=== PATIENT | male | born 2000 | race Two or more races ===

== ENCOUNTER 2025-01-16 12:54 | Emergency (ER) | payer MEDICAID, SELFPAY ==
[2025-01-16 12:56] VITALS: BMI 22.8
[2025-01-16 13:12] VITALS: BP 144/75; PULSE 64; RESP 16; TEMP 36.7; O2SAT 97
--- NOTE | 2025-01-16 13:20 | XR_ITS ---
Examination: Knee, left , 3 views Technique: Knee AP, lateral, oblique 3 views Date and time of exam: January 16, 2025 1401 hours INDICATIONS: Soccer injury to the knee 2 months ago with worsening pain today FINDINGS: No acute fracture No dislocation Small knee effusion IMPRESSION: No acute fracture
[2025-01-16] MEDS: IBUPROFEN TAB 600 MG TABLET PO (14:13)
--- NOTE | 2025-01-16 14:49 | EDNOTE_ITS ---
Lower Extremity Injury RME/HPI General Chief Complaint: Extremity Injury, Lower Stated Complaint: L KNEE PAIN X2 MONTHS Time Seen by Provider: 01/16/25 13:09 Arrival date/time: 01/16/25 12:54 24-year-old male presents to the Emergency Department today for complaints of left knee pain patient reports he injured his knee 2 months ago Limitations: no limitations Related Data Previous Rx's ?Medication ?Instructions ?Recorded ibuprofen 800 mg tablet 800 mg PO TID PRN pain #30 t abs 01/16/25 Allergies Allergy/AdvReac Type Severity Reaction Status Date / Time No Known Allergies Allergy Verified 01/16/25 12:58 Review of Systems Review of Systems Systems Reviewed: All systems reviewed, normal except as documented Constitutional Constitutional: Reports system reviewed and no additional complaints, except as documented, Denies fever(s) and Denies headache(s) Eyes Eyes: Reports system reviewed and no additional complaints, except as documented and Denies blurry vision ENT Ears, Nose, Mouth, and Throat: Reports system reviewed and no additional complaints, except as documented, Denies headache(s), Denies nasal congestion and Denies nasal discharge Cardiovascular Cardiovascular: Reports system reviewed and no additional complaints, except as documented, Denies chest pain and Denies dyspnea Respiratory Respiratory: Reports system reviewed and no additional complaints, except as documented, Denies chest congestion, Denies cough and Denies dyspnea Gastrointestinal Gastrointestinal: Reports system reviewed and no additional complaints, except as documented and Denies abdominal pain Musculoskeletal Musculoskeletal: Reports system reviewed and no additional complaints, except as documented, Reports abnormal gait, Reports arthralgias, Denies deformity and Reports joint swelling Integumentary/Breasts Skin/Breast: Reports system reviewed and no additional complaints, except as documented and Denies rash Neurologic Neurologic: Reports system reviewed and no additional complaints, except as documented, Reports as per HPI, Reports abnormal gait and Denies headache(s) Past Medical History Social History SMOKING STATUS: Never smoker ED Exam General Limitations: Present no limitations General appearance: Present alert and in no apparent distress Head Head exam: Present atraumatic Eye Eye exam: Present normal appearance, PERRL and EOMI ENT ENT exam: Present normal exam, normal oropharynx and mucous membranes moist Neck Neck exam: Present normal inspection, full ROM and trachea midline Chest Chest inspection: Present normal inspection and symmetric chest wall rise Respiratory Respiratory exam: Present normal lung sounds bilaterally Cardiovascular Cardiovascular exam: Present regular rate, normal rhythm and normal heart sounds Abdominal Exam Abdominal exam: Present soft and normal bowel sounds Extremities Exam Extremities exam: Present normal inspection, full ROM, tenderness, normal capillary refill and joint swelling; Absent pedal edema or calf tenderness Back Exam Back exam: Present normal inspection and full ROM Neurological Exam Neurological exam: Present alert, oriented X3, CN II-XII intact, normal gait and reflexes normal; Absent motor sensory deficit Psychiatric Psychiatric exam: Present normal affect and normal mood Skin Skin exam: Present warm, dry, intact and normal color Course Quality Measures none Orders Category Date Time Status sean wrap [Splint / Immobilizer] STAT Care 01/16/25 14:51 Completed XR knee LT 3V Stat Exams 01/16/25 13:20 Completed Ibuprofen Tab [Motrin Tab] Med 01/16/25 13:20 Discontinued 600 mg PO X1 ONE Vital Signs Vital signs: Vital Signs Temperature 98.0 F 01/16/25 13:12 Pulse Rate 64 01/16/25 13:12 Respiratory Rate 16 01/16/25 13:12 Blood Pressure 144/75 H 01/16/25 13:12 Pulse Oximetry (%) 97 01/16/25 13:12 Oxygen Delivery Method Room Air 01/16/25 13:12 O2 saturation 97% room air within the limits Extremity Injury, Lower MDM Narrative MDM Narrative:: 24-year-old male presents to the Emergency Department today for complaints of left knee pain patient reports he injured his knee 2 months ago On exam patient has has mild swelling of the left knee with pain no deformity noted patient is ambulatory I suspect based on patient's injury 2 months ago that he has a ligamentous tear Explained to the patient he is to have an outpatient MRI X-ray of the left knee obtained at this time no acute fracture dislocation noted Patient placed in Sean wrap Patient discharged home in no distress to follow-up with primary care doctor in the next 24 to 48 hours and for any worsening symptoms to return to the ER immediately Patient data External records reviewed:: [facility] previous records Clinical information provided by:: patient Social determinants that could affect healthcare access:: none Patient has the following chronic illnesses:: None How is presenting disease/condition affected by chronic disease/condition?: no chronic disease Evaluation data The following diagnostics were reviewed and interpreted by me:: radiology exam(s) Lab and/or radiology exams considered but not ordered:: Radiology obtain Interpretation Summary: By me Medications / Prescriptions Medications or Prescriptions considered but not ordered:: Given Medication administrations:: Medication Administration History Discontinued Medications Ibuprofen (Ibuprofen Tab 600 Mg Tablet) 600 mg PO X1 ONE Stop: 01/16/25 13:21 Last Admin: 01/16/25 14:13 Dose: 600 mg Documented By: OA Given Consultations Consultation(s) initiated? (list below): No Diagnosis Extremity Injury, Lower Differential Diagnosis: acute internal derangement of knee and other (From a sprain) Most likely diagnosis given after review of the tests above:: Sprain Admission Indicated Admission indicated?: not indicated Admission Request Was there a request for admission?: No Disposition Plan Disposition Plan: Discharge Discharge Attestation Discharge Attestation: The patient and all family members were given an opportunity to ask questions and understood the discharge instructions. Discharge instructions specifically effects, indications for sooner follow up or return to the emergency department, and the expected course of current diagnosis. Patient condition: Stable Discharge Plan Plan Patient Disposition: HOME (Self Care) Discharge Disposition comment: Stable Prescriptions/Referrals Prescriptions/Med Rec: New ibuprofen 800 mg tablet 800 mg PO TID PRN (Reason: pain) Qty: 30 0RF Referrals: Luis Baez MD [Primary Care Provider] - 01/17/25 Problem List Clinical Impression: Acute internal derangement of knee Patient/Caregiver Discharge Instructions Education Materials: How Your Knee Works Additional Instructions: Please follow up with your primary care doctor in the next 24-48hrs for any worsening symptoms return here immediately Please follow-up your PCP request MRI Print Language: New Zealander Stand Alone Forms: Maria G Award Info., Patient Portal Info Letter CHRISTINE/ARGELIA Supervising Physician CHRISTINE/ARGELIA Supervising Physician: Dr. olvera
== END 2025-01-16 14:59 | disposition home or self-care (01) ==
PROVIDERS: Emergency Provider Family Medicine; PCP Family Medicine
DX: S83.105A Unspecified dislocation of left knee, initial encounter (principal); X58.XXXA Exposure to other specified factors, initial encounter
CPT/HCPCS: 73562; 99283; A9270

== ENCOUNTER 2025-03-19 16:34 | Emergency (ER) | payer MEDICAID, SELFPAY ==
[2025-03-19 16:35] VITALS: BMI 25.8
[2025-03-19 17:01] VITALS: BP 126/85; PULSE 98; RESP 18; TEMP 36.9; O2SAT 97; BMI 27.6
--- NOTE | 2025-03-19 17:07 | XR_ITS ---
Examination: PA chest single view TECHNIQUE: Upright PA chest single view Date and time: History 72,025 1732 hours INDICATIONS: Shortness of breath FINDINGS: Normal heart size. Lungs are clear. The osseous structures are intact IMPRESSION: No active disease
--- NOTE | 2025-03-19 17:07 | EKG_ITS ---
[facility] Test Date: 2025-03-19 Pat Name: DELANO DUARTE Department: Room: - Gender: Male [employer] Management Specialist: : [id number] Requested By: Aide Melendez Order Number: [id number] Reading MD: Aide Melendez Measurements Intervals [place] Rate: 67 P: 58 UT: 149 QRS: 47 QRSD: 88 T: 53 QT: 371 QTc: 394 Interpretive Statements SINUS RHYTHM POSSIBLE RIGHT VENTRICULAR CONDUCTION DELAY [RSR (QR) IN V1/V2] No previous ECG available for comparison /store/S0/[id number].pdf
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
[2025-03-19] MEDS: DEXAMETHASONE SOD PHOS INJ 10 MG/ML VIAL IM (17:49)
[2025-03-19 17:53] VITALS: PULSE 69; RESP 18; O2SAT 98
[2025-03-19] MEDS: ALBUTEROL/IPRATROPIUM (Duoneb) RT SOL 3 ML NEBU INH (17:53)
[2025-03-19 18:24] LABS: Basophils # (Auto) 0.0 Thou/mm3 (0.0-0.2); Basophils % (Auto) 0 % (0-2.5); Eosinophils # (Auto) 0.1 Thou/mm3 (0.0-0.5); Eosinophils % (Auto) 1 % (0-10); Hematocrit 41.8 % (41.0-53.0); Hemoglobin 13.6 g/dL (13.5-16.0); Immature Granulocytes Auto 0.02 Thou/mm3 (0.00-0.00); Lymphocytes # (Auto) 4.1 Thou/mm3 (1.0-4.8); Lymphocytes % (Auto) 51 % (10-50); Mean Corpuscular HGB Conc 32.5 g/dl (31.0-37.0); Mean Corpuscular Hemoglobin 27.7 pg (25.0-35.0); Mean Corpuscular Volume 85 fL (80-100); Monocytes # (Auto) 0.6 Thou/mm3 (0.0-0.8); Monocytes % (Auto) 7 % (0-12); Neutrophils # (Auto) 3.1 Thou/mm3 (1.8-7.7); Neutrophils % (Auto) 39 % (37-80); Nucleated Red Blood Cell # 0.00 Thou/mm3 (0.00-0.00); Nucleated Red Blood Cell % 0 /100 WBC (0); Platelet Count 304 Thou/mm3 (140-440); RDW Standard Deviation 40.8 fL (35.1-43.9); Red Blood Count 4.91 Miln/mm3 (4.50-5.90); White Blood Count 8.0 Thou/mm3 (3.8-10.6)
[2025-03-19 18:42] LABS: Alanine Aminotransferase 40 U/L (10-49); Albumin, Serum 5.1 gm/dL (3.5-5.0); Albumin/Globulin Ratio 1.8 (1.2-2.2); Alkaline Phosphatase 107 U/L (46-116); Anion Gap 12 (7-16); Aspartate Amino Transferase 24 U/L (0-34); BUN/Creatinine Ratio 10 Ratio (12-20); Bilirubin,Total 0.9 mg/dL (0.3-1.2); Blood Urea Nitrogen 9 mg/dL (9-23); Calcium 10.2 mg/dL (8.3-10.6); Calcium (Corrected) 10.2 mg/dL (8.5-10.1); Carbon Dioxide 25.5 mMol/L (20.0-31.0); Chloride 107 mMol/L (98-107); Creatinine (Component) 0.9 mg/dL (0.6-1.3); Estimated Creatinine Clearance 132.6 mL/min (>60); Globulin 2.9 gm/dL (2.3-3.5); Glucose 104 mg/dL (74-106); Osmolality,Calculated 285 (275-295); Potassium 3.6 mMol/L (3.4-5.1); Sodium 144 mMol/L (136-145); Total Protein 8.0 gm/dL (5.7-8.2); Troponin I < 0.020 ng/mL (0.0-0.045); eGFR > 60 See Note
[2025-03-19 20:37] VITALS: PULSE 68; RESP 18; O2SAT 98
[2025-03-19] MEDS: ALBUTEROL RT 2.5 MG/3 ML NEBU 5 MG INH (20:37)
[2025-03-19 20:58] LABS: Carboxyhemoglobin 1.7 % (0.5-1.5)
[2025-03-19 20:59] LABS: Base Excess -1 (-3-3); HCO3 23 mEq/L (20-26); Inspired Oxygen, FIO2 21 %; O2 Saturation 98 % (91-98); PCO2 38 mmHg (32.0-48.0); PO2 92 mmHg (83-108); pH, Arterial 7.40 (7.35-7.45)
[2025-03-19 21:00] LABS: Allen Test Performed/OK; Puncture Site Right Radial
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
== END 2025-03-19 23:44 | disposition home or self-care (01) ==
PROVIDERS: Nurse Practitioner Family; Physician Assistant; Emergency Provider Emergency Medicine; PCP Family Medicine
DX: T58.8X1A Toxic effect of carbon monoxide from other source, accidental (unintentional), initial encounter (principal); R06.02 Shortness of breath; R07.9 Chest pain, unspecified; R09.89 Other specified symptoms and signs involving the circulatory and respiratory systems; R94.31 Abnormal electrocardiogram [ECG] [EKG]; X02.1XXA Exposure to smoke in controlled fire in building or structure, initial encounter; Z11.52 Encounter for screening for COVID-19
CPT/HCPCS: 36415; 36600; 71045; 80053; 82375; 82803; 84484; 85025; 87400; 87811; 93005; 94640; 96372; 99283; A9270; J1100